=== PATIENT | female | born 1985 | race Two or more races ===

== ENCOUNTER 2021-07-18 12:11 | Emergency (ER) | payer MEDICAID, OTHER ==
[~2021-07-18] VITALS: Ht 170.2 cm; Wt 78.0 kg
[2021-07-18 12:21] VITALS: BP 123/70
== END 2021-07-18 19:33 | disposition left against medical advice (07) ==
LOC: ER 12:11
DX: N93.9 Abnormal uterine and vaginal bleeding, unspecified (principal); D25.9 Leiomyoma of uterus, unspecified; Z53.29 Procedure and treatment not carried out because of patient's decision for other reasons; Z88.8 Allergy status to other drugs, medicaments and biological substances